=== PATIENT | male | born 1960 | race Two or more races ===

== ENCOUNTER 2024-02-19 14:19 | Emergency (ER) | payer OTHER ==
[~2024-02-19] VITALS: Ht 167.6 cm; Wt 63.5 kg
[2024-02-19] MEDS ORDERED: LIDOCAINE HCL 1% 10ML VIAL PERCUT ONE (16:45)
[2024-02-19] MEDS ORDERED: TETANUS & DIPHTHERIA TOX,ADULT 0.5 ML VIAL IM ONE (16:45)
[2024-02-19] MEDS ORDERED: TETANUS DIPHTHERIA TOX. ADSOR 5 ML VIAL IM ONE (16:53)
[2024-02-19] MEDS ORDERED: LIDOCAINE HCL 1% 10ML VIAL ONE (16:53)
[2024-02-19] MEDS ORDERED: BACITRACIN-NEOMYCIN-POLYMYXIN 0.9 GM PACKET TOP ONE (18:17)
== END 2024-02-19 18:42 | disposition home or self-care (01) ==
LOC: ER 14:20
DX: S01.81XA Laceration without foreign body of other part of head, initial encounter (principal); W45.8XXA Other foreign body or object entering through skin, initial encounter; Y93.89 Activity, other specified; Y92.018 Other place in single-family (private) house as the place of occurrence of the external cause; Y99.9 Unspecified external cause status

== ENCOUNTER 2024-03-02 09:49 | Emergency (ER) | payer OTHER ==
[~2024-03-02] VITALS: Ht 180.3 cm; Wt 66.2 kg
== END 2024-03-02 11:39 | disposition home or self-care (01) ==
LOC: ER 09:49
DX: Z48.02 Encounter for removal of sutures (principal)